=== PATIENT | male | born 1960 | race Caucasian/White ===

== ENCOUNTER 2019-02-15 05:54 | Emergency (ER) | payer BC ==
[2019-02-15] MEDS ORDERED: ASPIRIN 81 MG TABLET, CHEWABLE PO ONE (05:56)
[2019-02-15 06:16] LABS: ABSOLUTE EOSINOPHILS # (AUTO) 0.2 10^3/uL (0.0-0.6); ABSOLUTE LYMPHOCYTES (AUTO) 1.7 10^3/uL (0.5-4.7); ABSOLUTE MONOCYTES (AUTO) 1.4 10^3/uL (0.1-1.4); ABSOLUTE NEUT (AUTO) 10.5 10^3/uL (1.7-8.2); BASOPHILS % (AUTO) 0.3 % (0-2); EOSINOPHILS % (AUTO) 1.2 % (0-6); HEMATOCRIT 42.3 % (37.9-51.0); LYMPHOCYTES % (AUTO) 12.5 % (13-45); MEAN CORPUSCULAR HEMOGLOBIN 27.4 pg (27.0-33.4); MEAN CORPUSCULAR HGB CONC 33.1 g/dL (32.0-36.0); MEAN CORPUSCULAR VOLUME 83 fl (80-97); MONOCYTES % (AUTO) 10.1 % (3-13); PLATELET COUNT 303 10^3/uL (150-450); RED BLOOD COUNT 5.11 10^6/uL (4.35-5.55); RED CELL DISTRIBUTION WIDTH 14.7 % (11.5-14.0); SEGMENTED NEUTROPHILS % (AUTO) 75.9 % (42-78); TOTAL CELLS COUNTED % (AUTO) 100 %; WHITE BLOOD COUNT 13.8 10^3/uL (4.0-10.5)
--- NOTE | 2019-02-15 06:23 | ER Document Report ---
ED General - General Chief Complaint: Chest Pain Stated Complaint: LEFT SIDED CHEST PAIN Time Seen by Provider: 02/15/19 06:01 - HPI Notes: Patient presents with concern of sharp chest pain left-sided chest worse with breathing. He does not have a history of heart attack or strokes. He states that it started and has been intermittent since yesterday but became constant over the last 3 to 4 hours. He has not had any recent cough congestion fevers. He does smoke marijuana occasionally. He also drives 4 hours back and forth in [place] - Related Data Allergies/Adverse Reactions: sulfamethoxazole [From Bactrim] Allergy (Verified 02/15/19 06:56) trimethoprim [From Bactrim] Allergy (Verified 02/15/19 06:56) Past Medical History - Social History Smoking Status: Unknown if Ever Smoked Family History: Reviewed & Not Pertinent Review of Systems - Review of Systems Constitutional: No symptoms reported EENT: No symptoms reported Cardiovascular: See HPI Respiratory: No symptoms reported Gastrointestinal: No symptoms reported Genitourinary: No symptoms reported Male Genitourinary: No symptoms reported Musculoskeletal: No symptoms reported Skin: No symptoms reported Hematologic/Lymphatic: No symptoms reported Neurological/Psychological: No symptoms reported Physical Exam - Vital signs Vitals: Pulse Ox 96 02/15/19 05:55 - General General appearance: Appears well, Alert - HEENT Head: Normocephalic, Atraumatic - Respiratory Respiratory status: No respiratory distress Chest status: Nontender Breath sounds: Normal Chest palpation: Normal - Cardiovascular Rhythm: Regular Heart sounds: Normal auscultation Murmur: No - Abdominal Inspection: Normal Distension: No distension Bowel sounds: Normal - Extremities General upper extremity: Normal inspection General lower extremity: Normal strength - Neurological Neuro grossly intact: Yes Cognition: Normal Orientation: AAOx4 Course - Re-evaluation Re-evalutation: 02/15/19 08:16 Patient found to have inflammatory process in right lung. He has been having some cough and congestion. Will treat as pneumonia. I did discuss he needs to have a 3-month follow-up due to enlarged lymph nodes. He also shows signs of gastritis we placed on Zantac. He is to follow-up with his primary care doctor next 4 to 5 days if symptoms not improving otherwise in [address] - Vital Signs Vital signs: Temp Pulse Resp BP Pulse Ox 98.0 F 25 H 132/80 H 93 02/15/19 08:16 02/15/19 08:16 02/15/19 08:16 02/15/19 08:16 - Laboratory Result Diagrams: 02/15/19 06:05 02/15/19 06:05 Laboratory results interpreted by me: 02/15/19 02/15/19 06:05 06:05 WBC 13.8 H RDW 14.7 H Lymph % (Auto) 12.5 L Absolute Neuts (auto) 10.5 H Glucose 128 H Discharge - Discharge Clinical Impression: Pneumonia Qualifiers: Pneumonia type: due to unspecified organism Laterality: left Lung location: unspecified part of lung Qualified Code(s): J18.9 - Pneumonia, unspecified organism Gastritis Qualifiers: Gastritis type: other gastritis Chronicity: unspecified Gastritis bleeding: without bleeding Qualified Code(s): K29.60 - Other gastritis without bleeding Disposition: HOME, SELF-CARE Instructions: Antacid Therapy ([facility]), Pneumonia ([facility]) Additional Instructions: Please follow-up in [address] outpatient [address] as you showed enlarged lymph nodes on CT today and we need to ensure that this is improving. Seek medical reevaluation if your symptoms are not improving in the next 3 to 5 days Prescriptions: Levofloxacin [Levaquin 750 mg Tablet] 750 mg PO DAILY #10 tablet Oxycodone HCl/Acetaminophen [Percocet 5-325 mg Tablet] 1 tab PO ASDIR PRN #10 tablet PRN Reason: Ranitidine HCl [Zantac] 150 mg PO BID #60 tablet
[2019-02-15] MEDS ORDERED: LIDOCAINE 2% VISCOUS SOLN 20 ML UDCUP PO ONE (06:28)
[2019-02-15] MEDS ORDERED: MAG HYDROX/AL HYDROX/SIMETH SUSP 30 ML UDCUP PO ONE (06:28)
[2019-02-15] MEDS ORDERED: METOCLOPRAMIDE HCL ORAL SOLN 10 MG/10 ML UDCUP PO ONE (06:28)
[2019-02-15 06:35] LABS: ALBUMIN 4.3 g/dL (3.5-5.0); ALKALINE PHOSPHATASE 90 U/L (38-126); ANION GAP 9 (5-19); ASPARTATE AMINO TRANSFERASE 22 U/L (17-59); BILIRUBIN,DIRECT 0.3 mg/dL (0.0-0.4); BLOOD UREA NITROGEN 17 mg/dL (7-20); CALCIUM 9.2 mg/dL (8.4-10.2); CARBON DIOXIDE 29 mmol/L (22-30); CHLORIDE 102 mmol/L (98-107); CREATINE KINASE 88 U/L (55-170); GLUCOSE 128 mg/dL (75-110); POTASSIUM 4.3 mmol/L (3.6-5.0); TOTAL PROTEIN 7.4 g/dL (6.3-8.2)
[2019-02-15 06:47] LABS: CREATINE KINASE MB 0.59 ng/mL (<4.55)
[2019-02-15 06:53] LABS: TROPONIN I < 0.012 ng/mL
--- NOTE | 2019-02-15 06:55 | RADIOLOGY REPORT (SQ) ---
EXAM DESCRIPTION: XR CHEST 1 VIEW COMPLETED DATE/TME: 02/15/2019 05:57 CLINICAL HISTORY: 58 years, Male, cp COMPARISON: None. NUMBER OF VIEWS: One TECHNIQUE: AP view of the chest LIMITATIONS: None. FINDINGS: There is a peripheral opacity involving the left midlung. Right lung is clear. The heart is mildly enlarged. There is no pneumothorax or pleural effusion. There is no acute fracture. IMPRESSION: Peripheral opacity involving the left midlung, concerning for pneumonia. copyright 2010 [employer]- All Rights Reserved
[2019-02-15] MEDS ORDERED: FENTANYL CITRATE INJ/PF 100 MCG/2 ML AMPUL IV ONE (07:46)
--- NOTE | 2019-02-15 07:53 | RADIOLOGY REPORT (SQ) ---
EXAM DESCRIPTION: CT CHEST ANGIOGRAPHY WITHOUT THEN WITH IV CONTRAST COMPLETED DATE/TME: 02/15/2019 06:21 CLINICAL HISTORY: 58 years Male, sharp chest pain Comparison: CR, same day. Technique: IV contrast. Coronal and sagittal reformat. 3d reconstruction. This exam was performed according to our departmental dose-optimization program, which includes automated exposure control, adjustment of the mA and/or kV according to patient size and/or use of iterative reconstruction technique.[facility]: Dose Right [facility]: CareDose [facility]: Dose Right [facility]: Teradose 4D [facility]: Cloudscaling LIMITATIONS: Quality of pulmonary arteriogram: Suboptimal. Findings: Moderate consolidative opacity of the left infrahilar lingula. Hepatic steatosis. Mild/moderate mediastinal lymphadenopathy includes a 1.8 x 1.6 cm lymph node at the left aortopulmonary space, image 44 of series 3 and enlarged posterior mediastinal lymph nodes. Mild diffuse submucosal edema suggestive of mild gastritis. Diffuse idiopathic skeletal hyperostosis. Coronary arterial calcification. Atherosclerotic vascular disease. Mild diffuse transverse colonic bowel wall thickening, nonspecific. Colonic stool retention. No pulmonary embolus. No right ventricular strain. Inferior neck, axillae, airway, heart, vasculature, upper abdomen, and musculoskeleton appear otherwise unremarkable. Impression: 1. Moderate-large consolidation of the lingula. Mild-moderate mediastinal lymphadenopathy. Differential etiologies include infectious, inflammatory, and neoplastic processes. Consider a non-contrast Chest CT at 3 months, a PET/CT, or tissue sampling alongside clinically warranted therapy. 2. Mild gastritis. Mild transverse colitis. 3. Hepatic steatosis. 4. No pulmonary embolus. Limitation.
[2019-02-15] MEDS ORDERED: LEVOFLOXACIN 750 MG TABLET PO ONE (08:24)
[2019-02-15 08:29] VITALS: BP 132/80
--- NOTE | 2019-02-16 21:03 | EKG REPORT ---
SEVERITY:- BORDERLINE ECG - SINUS RHYTHM CONSIDER ANTERIOR INFARCT : Confirmed by: Steve Olivera MD 16-Feb-2019 21:03:06
== END 2019-02-15 08:32 | disposition home or self-care (01) ==
LOC: ER 05:54
DX: J18.9 Pneumonia, unspecified organism (principal); K29.60 Other gastritis without bleeding; R07.9 Chest pain, unspecified; Z88.3 Allergy status to other anti-infective agents
CPT/HCPCS: 93005; 99285; 96374; 36415; 82553; 82550; 83735; 85025; 80053; 84484; 71045; 71275; 93010; J3010; J3490